=== PATIENT | female | born 1990 | race Caucasian/White ===

== ENCOUNTER 2020-02-03 20:59 | Emergency (ER) | payer MEDICAID, OTHER ==
[2020-02-03 21:08] VITALS: BP 110/82
--- NOTE | 2020-02-03 21:14 | ED Physician Documentation ---
History of Present Illness - Stated complaint Stated Complaint: FEVER/SORE THROAT - Chief complaint Chief Complaint: General - Additonal information Additional information: This is a 29-year-old female presents with a cough for 1 week, fever to 102 F over the last 48 hours, sore throat, and diarrhea. Symptoms have been ongoing for several days other than the cough is been present for a week. 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 She denies any shortness of breath. No abdominal pain. No vomiting. She has been able to drink fluids without issue. Review of Systems Constitutional: reports: Fever Cardiac: denies: Chest pain / pressure Respiratory: reports: Cough. denies: Dyspnea GI: reports: Diarrhea. denies: Abdominal Pain, Vomiting : denies: Dysuria Neurologic: denies: Generalized weakness Immunocompromised: denies: Immunocompromised PD PAST MEDICAL HISTORY - Past Surgical History Past Surgical History: Yes General: Appendectomy - Present Medications Home Medications: Ambulatory Orders Medication Instructions Recorded Confirmed Acetaminophen [Tylenol] 650 mg PO Q6H PRN #60 tablet 08/11/15 Famotidine 20 mg PO DAILY #30 tablet 08/11/15 Metoclopramide HCl [Reglan] 5 mg PO Q6H PRN #20 tablet 08/11/15 - Allergies Allergies/Adverse Reactions: Allergies Allergy/AdvReac Type Severity Reaction Status Date / Time latex AdvReac Intermediate Rash Verified 02/03/20 21:07 - Social History Does the pt smoke?: No Smoking Status: Never smoker Does the pt drink ETOH?: No Does the pt have substance abuse?: No - Immunizations Immunizations are current?: Yes - POLST Patient has POLST: No PD ED PE NORMAL - Vitals Vital signs reviewed: Yes - General General: Alert and oriented X 3, No acute distress - HEENT HEENT: PERRL, Other (Tonsils are edematous, mildly erythematous, no exudate. Normal range of motion of the neck. Soft tissues of the jaw and submental region are soft.) - Neck Neck: Supple, no meningeal sign - Cardiac Cardiac: RRR, No murmur - Respiratory Respiratory: Clear bilaterally - Abdomen Abdomen: Normal bowel sounds, Soft, Non tender, Non distended - Derm Derm: Warm and dry - Extremities Extremities: No deformity - Neuro Neuro: Alert and oriented X 3 - Psych Psych: Normal mood, Normal affect Results - Vitals Vitals: Vital Signs - 24 hr 02/03/20 21:03 Temperature 36.8 C Heart Rate 99 Respiratory 16 Rate Blood Pressure 110/82 H O2 Saturation 97 Oxygen O2 Source Room air - Labs Labs: Laboratory Tests 02/03/20 21:20 Group A Strep Rapid Negative PD MEDICAL DECISION MAKING - ED course ED course: Patient is well-appearing, afebrile, with a normal oxygen saturation, clear lungs on examination. She does have a sore throat and has some tonsillar edema, strep swab was obtained and is negative. She has some diarrhea but has a completely benign abdominal exam with no tenderness whatsoever. She has been able to hold down fluids, does not have any blood in her stool, does not have any red flags for more serious cause of her diarrhea at this time. 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 COVID-19 swab was obtained. We elected not to perform a flu swab, given that that patient symptoms been ongoing for around 1 week, and she is not a candidate for the Tamiflu therapy even if it is positive. We discussed supportive care, Tylenol for symptoms, and return precautions with any inability to tolerate fluids/dehydration, abdominal pain, difficulty breathing, or other concerning symptoms. Patient agrees and was discharged home in good condition. Departure - Departure Disposition: 01 Home, Self Care Clinical Impression: Viral syndrome Condition: Good Instructions: ED Viral Syndrome Comments: Your strep test was negative today, based on your symptoms and exam I think you likely have a viral illness. We did swab you for coronavirus, these tests been taking 3 to 5 days to come back, until your receive the result and are feeling better, make sure that you are practicing good hand hygiene, covering your cough, self isolating and practicing good social distancing. You may take ibuprofen and Tylenol for discomfort, use Tylenol first if possible. If you are developing worsening symptoms such as inability to hold down fluids, abdominal pain, difficulty breathing, return to the emergency department. Discharge Date/Time: 02/03/20 22:18
[2020-02-03] MEDS ORDERED: IBUPROFEN 600 MG TABLET PO STA (21:21)
[2020-02-03 21:37] LABS: RAPID STREP SCREEN Negative (Negative)
== END 2020-02-03 22:18 | disposition home or self-care (01) ==
LOC: ED 20:59
DX: J06.9 Acute upper respiratory infection, unspecified (principal)
CPT/HCPCS: 87070; 87430; 99283; A9270

== ENCOUNTER 2020-08-12 10:17 | Outpatient (CLI) | payer MEDICAID ==
[2020-08-12 10:32] LABS: INR 1.2 (0.8-1.2); PT - PROTHROMBIN TIME 13.3 secs (9.9-12.6)
[2020-08-12 10:37] LABS: BASOPHILS % (AUTO) 0.4 %; EOSINOPHILS # (AUTO) 0.4 10^3/uL (0.0-0.7); EOSINOPHILS % (AUTO) 4.1 %; HGB - HEMOGLOBIN 14.2 g/dL (12.0-16.0); LYMPHOCYTES # (AUTO) 2.8 10^3/uL (1.5-3.5); LYMPHOCYTES % (AUTO) 30.3 %; MEAN CORPUSCULAR HEMOGLOBIN 30.9 pg (27.0-31.0); MEAN CORPUSCULAR HGB CONC 36.2 g/dL (32.0-36.0); MEAN CORPUSCULAR VOLUME 85.4 fL (81.0-99.0); MEAN PLATELET VOLUME 9.8 fL (7.9-10.8); MONOCYTES # (AUTO) 0.7 10^3/uL (0.0-1.0); MONOCYTES % (AUTO) 8.1 %; NEUTROPHILS # (AUTO) 5.2 10^3/uL (1.5-6.6); NEUTROPHILS % (AUTO) 56.8 %; PLT - PLATELET COUNT 357 10^3/uL (130-450); RED BLOOD COUNT 4.59 10^6/uL (4.20-5.40); RED CELL DISTRIBUTION WIDTH 12.2 % (12.0-15.0); WHITE BLOOD COUNT 9.2 x10^3/uL (4.8-10.8)
[2020-08-12 10:38] LABS: ALBUMIN 4.4 g/dL (3.2-5.5); ALBUMIN/GLOBULIN RATIO 1.3 (1.0-2.2); CALCIUM 9.2 mg/dL (8.5-10.3); CREATININE 0.6 mg/dL (0.4-1.0); TOTAL PROTEIN 7.8 g/dL (6.7-8.2)
[2020-08-12 10:39] LABS: PARTIAL THROMBOPLASTIN TIME 29.7 secs (24.9-33.3)
== END 2020-08-12 10:18 | disposition home or self-care (01) ==
LOC: LAB 10:17
PROVIDERS: ATTEND Family Medicine
DX: Z01.812 Encounter for preprocedural laboratory examination (principal)
CPT/HCPCS: 36415; 80053; 84702; 85025; 85610; 85730

== ENCOUNTER 2020-08-24 10:14 | Outpatient (CLI) | payer MEDICAID ==
[2020-08-24 10:40] LABS: BASOPHILS % (AUTO) 0.3 %; EOSINOPHILS # (AUTO) 0.3 10^3/uL (0.0-0.7); EOSINOPHILS % (AUTO) 3.5 %; HGB - HEMOGLOBIN 14.4 g/dL (12.0-16.0); LYMPHOCYTES # (AUTO) 2.6 10^3/uL (1.5-3.5); LYMPHOCYTES % (AUTO) 28.4 %; MEAN CORPUSCULAR HEMOGLOBIN 30.8 pg (27.0-31.0); MEAN CORPUSCULAR HGB CONC 36.4 g/dL (32.0-36.0); MEAN CORPUSCULAR VOLUME 84.8 fL (81.0-99.0); MEAN PLATELET VOLUME 9.7 fL (7.9-10.8); MONOCYTES # (AUTO) 0.8 10^3/uL (0.0-1.0); MONOCYTES % (AUTO) 8.2 %; NEUTROPHILS # (AUTO) 5.4 10^3/uL (1.5-6.6); NEUTROPHILS % (AUTO) 59.3 %; PLT - PLATELET COUNT 364 10^3/uL (130-450); RED BLOOD COUNT 4.67 10^6/uL (4.20-5.40); WHITE BLOOD COUNT 9.2 x10^3/uL (4.8-10.8)
[2020-08-24 10:45] LABS: INR 1.2 (0.8-1.2); PT - PROTHROMBIN TIME 13.3 secs (9.9-12.6)
[2020-08-24 12:01] LABS: HCG,QUALITATIVE BLOOD NEGATIVE
[2020-08-25 14:17] LABS: HIV AG/AB 4TH GEN NON-REACTIVE (NON-REACTIVE)
== END 2020-08-24 10:15 | disposition home or self-care (01) ==
LOC: LAB 10:14
PROVIDERS: ATTEND Nurse Practitioner Family
DX: Z01.818 Encounter for other preprocedural examination (principal)
CPT/HCPCS: 36415; 84703; 85025; 85610; 87389

== ENCOUNTER 2020-08-30 08:00 | Outpatient (CLI) | payer MEDICAID | END 2020-08-30 23:59 | disposition home or self-care (01) | LOC: LAB.R 08:00 | PROVIDERS: ATTEND Family Medicine | DX: Z01.818 Encounter for other preprocedural examination (principal); Z20.828 Contact with and (suspected) exposure to other viral communicable diseases ==

== ENCOUNTER 2021-01-17 08:00 | Outpatient (CLI) | payer MEDICAID ==
[2021-01-17 18:04] LABS: BASOPHILS % (AUTO) 0.3 %; EOSINOPHILS # (AUTO) 0.4 10^3/uL (0.0-0.7); EOSINOPHILS % (AUTO) 3.4 %; HCT - HEMATOCRIT 41.6 % (37.0-47.0); HGB - HEMOGLOBIN 13.6 g/dL (12.0-16.0); LYMPHOCYTES # (AUTO) 2.4 10^3/uL (1.5-3.5); MEAN CORPUSCULAR HEMOGLOBIN 28.5 pg (27.0-31.0); MEAN CORPUSCULAR HGB CONC 32.7 g/dL (32.0-36.0); MEAN CORPUSCULAR VOLUME 87.2 fL (81.0-99.0); MEAN PLATELET VOLUME 10.4 fL (7.9-10.8); MONOCYTES # (AUTO) 0.7 10^3/uL (0.0-1.0); MONOCYTES % (AUTO) 6.5 %; NEUTROPHILS # (AUTO) 6.8 10^3/uL (1.5-6.6); NEUTROPHILS % (AUTO) 66.2 %; PLT - PLATELET COUNT 371 10^3/uL (130-450); RED BLOOD COUNT 4.77 10^6/uL (4.20-5.40); RED CELL DISTRIBUTION WIDTH 13.8 % (12.0-15.0); WHITE BLOOD COUNT 10.2 x10^3/uL (4.8-10.8)
[2021-01-17 18:31] LABS: RHEUMATOID FACTOR NEGATIVE (Negative)
[2021-01-19 14:27] LABS: ANA SCREEN NEGATIVE (NEGATIVE)
== END 2021-01-17 23:59 | disposition home or self-care (01) ==
LOC: LAB.WCP 08:00
PROVIDERS: ATTEND Family Medicine
DX: G44.89 Other headache syndrome (principal)
CPT/HCPCS: 36415; 85025; 85651; 86038; 86140; 86430

== ENCOUNTER 2021-07-01 12:00 | Emergency (ER) | payer MEDICAID ==
[2021-07-01 12:14] VITALS: BP 123/74
[2021-07-01 12:39] LABS: BILIRUBIN,URINE NEGATIVE (NEGATIVE); GLUCOSE, URINE (UA) NEGATIVE (NEGATIVE); KETONES,URINE (UA) NEGATIVE (NEGATIVE); LEUKOCYTE ESTERASE, URINE MODERATE (NEGATIVE); NITRITE,URINE NEGATIVE (NEGATIVE); OCCULT BLOOD,URINE LARGE (NEGATIVE); PROTEIN,URINE 100 mg/dL (NEGATIVE); UROBILINOGEN,URINE 0.2 (NORMAL) E.U./dL (NORMAL)
--- NOTE | 2021-07-01 12:41 | ED Physician Documentation ---
PD HPI FEMALE - Stated complaint Stated Complaint: FEMALE - Chief complaint Chief Complaint: UTI - History obtained from History obtained from: Patient - History of Present Illness Timing - onset: How many weeks ago (2) Timing - duration: Weeks (2) Timing - details: Gradual onset Pain level max: 5 Pain level max: 2 Associated symptoms: Dysuria, Urinary frequency. No: Fever, Abdominal pain, Pelvic pain, Vaginal pain, Vaginal bleeding, Vaginal discharge, Genital sore/le dannie, Hematuria Contributing factors: No: Exposed to STD Similar symptoms before: Diagnosis (UTI) Review of Systems Constitutional: denies: Fever, Chills Respiratory: denies: Cough GI: denies: Abdominal Pain, Vomiting, Diarrhea : denies: Now EGA Musculoskeletal: denies: Back pain PD PAST MEDICAL HISTORY - Past Medical History Past Medical History: No - Past Surgical History Past Surgical History: Yes General: Appendectomy - Present Medications Home Medications: Ambulatory Orders Medication Instructions Recorded Confirmed Phenazopyridine HCl [Pyridium] 200 mg PO TID PRN #6 tablet 07/01/21 cephALEXin [Keflex] 500 mg PO Q6H #20 cap 07/01/21 - Allergies Allergies/Adverse Reactions: Allergies Allergy/AdvReac Type Severity Reaction Status Date / Time latex AdvReac Intermediate Rash Verified 07/01/21 12:11 - Living Situation Living Arrangement: reports: At home - Social History Does the pt smoke?: No Smoking Status: Never smoker Does the pt drink ETOH?: No Does the pt have substance abuse?: No - Immunizations Immunizations are current?: Yes - POLST Patient has POLST: No PD ED PE NORMAL - Vitals Vital signs reviewed: Yes - General General: Alert and oriented X 3, No acute distress - HEENT HEENT: Moist mucous membranes - Respiratory Respiratory: No respiratory distress - Abdomen Abdomen: Soft, Non tender, Non distended - Back Back: No CVA TTP - Derm Derm: Warm and dry - Neuro Neuro: Alert and oriented X 3 - Psych Psych: Normal mood, Normal affect Results - Vitals Vitals: Vital Signs - 24 hr 07/01/21 12:10 Temperature 36.7 C Heart Rate 72 Respiratory 18 Rate Blood Pressure 123/74 O2 Saturation 97 Oxygen O2 Source Room air - Labs Labs: Laboratory Tests 07/01/21 12:19 Urine Color YELLOW Urine Clarity CLOUDY Urine pH 6.0 Ur Specific Tamms >=1.030 H Urine Protein 100 H Urine Glucose (UA) NEGATIVE Urine Ketones NEGATIVE Urine Occult Blood LARGE H Urine Nitrite NEGATIVE Urine Bilirubin NEGATIVE Urine Urobilinogen 0.2 (NORMAL) Ur Leukocyte Esterase MODERATE H Urine RBC 6-10 H Urine WBC >25 H Urine WBC Clumps PRESENT Ur Squamous Epith Cells NONE SEEN Urine Bacteria Few Ur Microscopic Review INDICATED Urine Culture Comments INDICATED Urine HCG, Qual NEGATIVE PD MEDICAL DECISION MAKING - ED course Complexity details: reviewed results, re-evaluated patient, considered differential, d/w patient ED course: 30-year-old female with signs and symptoms consistent with UTI. No evidence of pyelonephritis. Denies any STD exposure. We will treat his UTI and see how she progresses. Patient counseled regarding signs and symptoms for which I believe and urgent re-evaluation would be necessary. Patient with good understanding of and agreement to plan and is comfortable going home at this time This document was made in part using voice recognition software. While efforts are made to proofread this document, sound alike and grammatical errors may occur. Departure - Departure Disposition: 01 Home, Self Care Clinical Impression: Urinary tract infection Qualifiers: Urinary tract infection type: acute cystitis Hematuria presence: without hematuria Qualified Code(s): N30.00 - Acute cystitis without hematuria Condition: Good Instructions: ED UTI Cystitis Female Follow-Up: Isaías Cosby MD [Primary Care Provider] - As Needed Prescriptions: cephALEXin [Keflex] 500 mg PO Q6H #20 cap Phenazopyridine HCl [Pyridium] 200 mg PO TID PRN #6 tablet PRN Reason: dysuria Comments: Take all antibiotics until gone. Follow-up with your doctor for further care. Return if you worsen. Your prescription was sent to [facility] in [place]. Discharge Date/Time: 07/01/21 12:51
[2021-07-01 12:48] LABS: CLARITY,URINE CLOUDY (CLEAR); HCG UR QUAL NEGATIVE
[2021-07-01 12:56] LABS: BACTERIA,URINE Few /HPF (None Seen); SQUAMOUS EPITHELIAL CELL,UR NONE SEEN (<= Few); WBC CLUMPS,URINE PRESENT; WBC,URINE >25 /HPF (0-5)
== END 2021-07-01 12:51 | disposition home or self-care (01) ==
LOC: ED 12:00
DX: N30.00 Acute cystitis without hematuria (principal)
CPT/HCPCS: 81001; 81003; 81025; 87086; 87181; 99283; 99284